=== PATIENT | male | born 1945 | race Caucasian/White ===

== ENCOUNTER → 2017-10-19 13:41 | Outpatient (CLI) | payer MEDICARE, OTHER, SELFPAY ==
[2017-10-19 14:05] LABS: Add Manual Diff / Slide Review NO; Basophils Percent Auto 0.7 % (0-2); Eosinophils Percent Auto 2.1 % (2-4); Hematocrit 34.7 % (41-53); Hemoglobin 12.1 g/dL (13.5-17.5); Lymphocytes Percent Auto 20.4 % (25-40); Mean Corpuscular HGB Conc 34.9 % (30-36); Mean Corpuscular Hemoglobin 36.6 PG (26-34); Monocytes Percent Auto 16.1 % (3-14); Neutrophils Absolute Auto 2800 /uL (3000-5900); Neutrophils Percent Auto 60.7 % (50-75); Platelet Count 170 X10^3/uL (150-400); Red Blood Cell Count 3.31 X10^6/uL (4.5-5.9); Red Cell Distribution Width 13.4 % (11.6-14.8); White Blood Cell Count 4.6 X10^3/uL (4.5-11.0)
[2017-10-19 14:21] LABS: Alanine Aminotransferase 42 IU/L (21-72); Albumin 4.3 g/dL (3.5-5.0); Albumin Globulin Ratio 1.4 (1.0-2.8); Alkaline Phosphatase 56 U/L (38-126); Aspartate Aminotransferase 42 IU/L (17-59); Bilirubin Total 0.8 mg/dL (0.2-1.3); Blood Urea Nitrogen 18 mg/dL (9-20); Calcium 9.6 mg/dL (8.4-10.2); Carbon Dioxide 28 mmol/L (22-32); Chloride 100 mmol/L (98-107); Estimated Glomerular Filt Rate > 60.0 mL/min (>60); Globulin 3.1 g/dL (1.7-4.1); Glucose 85 mg/dL (80-110); HEMOLYSIS < 15 (0-50); Lactate Dehydrogenase 499 U/L (313-618); Potassium 4.4 mmol/L (3.4-5.1); Sodium 140 mmol/L (137-145); Total Protein 7.4 g/dL (6.3-8.2)
--- NOTE | 2017-10-19 16:34 | PC.NURSE ---
labs stables, provider visit 10/29
== END ==
PROVIDERS: Family Provider Family Medicine; PCP Family Medicine; Visit Provider Nurse Practitioner Gerontology
DX: D53.9 Nutritional anemia, unspecified (principal)
CPT/HCPCS: 36415; 80053; 83615; 85025

== ENCOUNTER → 2017-10-22 11:19 | Outpatient (CLI) | payer MEDICARE, OTHER, SELFPAY | PROVIDERS: Family Provider Family Medicine; PCP Family Medicine; Visit Provider Family Medicine | DX: R20.2 Paresthesia of skin (principal); G60.9 Hereditary and idiopathic neuropathy, unspecified | CPT/HCPCS: 95886; 95887; 95911 ==

== ENCOUNTER → 2017-11-03 12:59 | Outpatient (CLI) | payer MEDICARE, OTHER, SELFPAY ==
[2017-11-03 15:56] LABS: Vitamin B12 785 pg/mL (239-931)
[2017-11-05 14:01] LABS: Homocysteine 14.2 umol/L (< 11.4)
[2017-11-06 21:13] LABS: Methylmalonic Acid 207 nmol/L (87-318)
== END ==
PROVIDERS: Family Provider Family Medicine; PCP Family Medicine; Visit Provider Internal Medicine Hematology & Oncology
DX: D53.8 Other specified nutritional anemias (principal); E53.8 Deficiency of other specified B group vitamins
CPT/HCPCS: 36415; 82607; 83090; 83921

== ENCOUNTER 2017-11-16 11:30 | Oncology outpatient (ONC) | payer MEDICARE, OTHER, SELFPAY ==
--- NOTE | 2017-10-29 16:39 | P.PNONC_ITS ---
PN -Subjective Interval history: ID AND REASON FOR THE VISIT 72-year-old gentleman with macrocytic anemia of unknown etiology HISTORY OF PRESENT ILLNESS Devon Ferguson is 72 year old male with ?lifelong? history of anemia. Laboratory testing on November 18, 2012 showed hemoglobin level 12.4 hematocrit 37.3 MCV 105. Approximately 1 year the later on November 17, 2013 the white cell count 3.8, hemoglobin level 12.4, hematocrit 35.2 and MCV 103 and platelets 188. At the time patient admitted to regular alcohol use. He then reduced his alcohol intake by roughly 50-75% to to or fewer glasses of red wine each evening. Despite this patient continued to show macrocytic anemia. Labs from March 28 2014 showed WBC 4.5 hemoglobin 12.8, MCV 101. Serum vitamin B12 level ranges from [phone] from 02/26/2016 to 11/10/2016. His serum folic acid level was > 20 on 11/10/2016. Workup for possible multiple myeloma in 2015 showed no evidence of abnormal proteins. On December 28 2015, he underwent bone marrow aspiration biopsy. The pathology showed markedly hypocellular marrow for age (about 5% cellular) with reduced trilineage elements and evidence of erythroid regeneration, but no obvious dysplasia among the most visible cells, no obvious marrow infiltration by lymphoma, a plasma cell neoplasm, or non-hematopoietic neoplasm. His same day peripheral blood sample showed mild anemia with moderate erythrocyte macrocytosis. Flowcytometry showed of the bone marrow aspirate showed hemodilute sample with no abnormal blast or myeloid cell population identified, and no abnormal B-cell, T-cell, or plasma cell population identified. An MDS FISH panel performed on the marrow aspirate is negative for the genomic abnormalities evaluated. Patient has been taking vitamin B12 orally as well as taking folic acid for years. Recently probably for the past couple of months, patient has noticed problems keeping balance. In addition patient also noted numbness of the toes bilaterally. No other new events. - Patient Self-Reported Symptoms SR Neuro issues: Numbness or tingling (bilateral toes.), Difficulty balancing ( for the last couple of months. ) - Additional ROS All systems PM: reviewed and no additional remarkable complaints except as stated Home Medications and Allergies Home Medications Medication Instructions Recorded Confirmed Type aspirin 81 mg PO DAILY 10/29/17 10/29/17 History cyanocobalamin (vitamin B-12) 1,000 mcg PO DAILY 10/29/17 10/29/17 History [Vitamin B-12] folic acid 0.8 mg PO DAILY 10/29/17 10/29/17 History ibuprofen [Advil] 200 mg PO TID PRN 10/29/17 10/29/17 History lisinopril 20 mg PO DAILY 10/29/17 10/29/17 History lutein-zeaxanthin [Ocuvite Lutein 10/29/17 History 25] multivitamin 1 cap PO QAM 10/29/17 10/29/17 History omega 8-lvj-vgj-fish oil [Fish Oil] 2,400 10/29/17 History Exam Vital signs: Temperature 98.9?, heart rate 84, respiratory rate 16, blood pressure 126/71, pulse ox 99% on room air, weight 221.5 lb. ECOG performance score 1. - Constitutional positive no acute distress, positive average body habitus, positive cooperative (Younger than stated age) - Routine HEENT Exam Head: Present: normocephalic, atraumatic Eye: Present: EOMI, PERRL, normal accommodation. Absent: conjunctival icterus ENT: Present: mucous membranes moist - Routine Neck Exam Present: supple. Absent: lymphadenopathy, thyromegaly, swelling, tracheal deviation - Routine Chest/Breast/Axilla Exam Axillae: Absent: lymphadenopathy - Routine Respiratory Exam Present: Clear to auscultation bilaterally. Absent: wheezes - Routine Cardiovascular Exam Present: RRR, S1, S2. Absent: murmur, gallop, rubs - Routine Abdominal Exam Present: soft, normoactive bowel sounds. Absent: tenderness, distended, organomegaly - Routine Extremities Exam Absent: cyanosis, clubbing, edema - Routine Back/Spine Exam Back/Spine: Present: full ROM. Absent: CVA tenderness, paraspinal tenderness - Routine Neurological Exam Present: alert, oriented X3, CN II-XII intact, sensory deficit (Numbness of the toes bilaterally), normal reflexes, abnormal gait (Unsteady when walking), moving all extremities, normal tone, normal speech. Absent: motor deficit, tremors, asterixis - Routine Psychiatric Exam Present: normal affect, normal thought process, cooperative, good insight, good judgment Results - Labs The labs from October 19, 2017 WBC 4.6, RBC 3.31, hemoglobin 12.1, hematocrit 34.7, MCV 105.0, MCH 36.6, neutrophil 2800 Sodium 140, potassium 4.4, chloride 100, carbon dioxide 28, BUN 18, creatinine 0.9, glucose 85, calcium 9.6, total bilirubin 0.8, AST 42, ALT 42, alk phos 56, lactate dehydrogenase 499, total protein 7.4, albumin 4.3, globulin 3.1, - Imaging Additional studies: Procedures Closed [endoscopic] biopsy of large intestine (03/01/13) Assessment and Plan (1) Macrocytic anemia Current visit: Yes Status: Chronic 10/29/17 16:49 A longstanding history of macrocytic anemia. Previous workup showed no evidence of vitamin B12 or folic acid deficiency. Bone marrow aspiration biopsy was unremarkable. However recently patient developed balancing problems as well as numbness of the toes. These cluster of events suggest possible vitamin B12 deficiency. Clinically patient has been on vitamin B12 orally. I am suspicious that patient has vitamin B12 deficiency but with normal serum vitamin B12 level. Oral vitamin B12 supplementation may not be sufficient. I will proceed with repeat testing of vitamin B12 deficiency. I will check an MMA, HC and vitamin B12 level. And I will have the patient come back right after the results are available for review. If it is confirmed, I will convert the oral vitamin B12 to intramuscular vitamin B12 injection. (2) Numbness of toes Current visit: Yes Status: Chronic 10/29/17 16:51 Not sure the exact etiology for the numbness of the toes bilaterally. Patient currently is also being followed by his primary care provider for further workup of possible neurological etiologies. If the above-mentioned vitamin B12 deficiency testing was confirmed, patient may have neuropathy due to Vitamin B12 deficiency. MRI studies of the spinal cord may be need to evaluate possible sub acute combined degeneration of the dorsal (posterior) and lateral columns ( white matter) of the spinal cord due to demyelination. (3) Balance problem Current visit: Yes Status: Chronic 10/29/17 16:52 Once again the etiology is uncertain for the balancing issues. It may be related to the neuropathy patient has demonstrated including the numbness of the toes. These may be related to possible vitamin B12 deficiency. Again I will wait for the test results and we talked with the patient about possible further treatment options. - Time Spent with Patient We will have the patient come back in about 1-2 weeks to review the results.
[2017-11-16 11:30] LABS: Add Manual Diff / Slide Review NO; Basophils Percent Auto 0.8 % (0-2); Eosinophils Percent Auto 2.4 % (2-4); Hematocrit 35.7 % (41-53); Hemoglobin 12.4 g/dL (13.5-17.5); Lymphocytes Percent Auto 24.8 % (25-40); Mean Corpuscular HGB Conc 34.6 % (30-36); Mean Corpuscular Hemoglobin 36.9 PG (26-34); Mean Corpuscular Volume 106.6 fL (80-100); Monocytes Percent Auto 17.9 % (3-14); Neutrophils Absolute Auto 2100 /uL (3000-5900); Neutrophils Percent Auto 54.1 % (50-75); Platelet Count 176 X10^3/uL (150-400); Red Blood Cell Count 3.35 X10^6/uL (4.5-5.9); Red Cell Distribution Width 13.3 % (11.6-14.8); White Blood Cell Count 3.9 X10^3/uL (4.5-11.0)
[2017-11-16 11:36] LABS: Alanine Aminotransferase 38 IU/L (21-72); Albumin 4.4 g/dL (3.5-5.0); Albumin Globulin Ratio 1.4 (1.0-2.8); Alkaline Phosphatase 68 U/L (38-126); Aspartate Aminotransferase 39 IU/L (17-59); BUN Creatinine Ratio 16.7 (6-22); Bilirubin Total 0.8 mg/dL (0.2-1.3); Blood Urea Nitrogen 15 mg/dL (9-20); Calcium 9.7 mg/dL (8.4-10.2); Carbon Dioxide 28 mmol/L (22-32); Chloride 99 mmol/L (98-107); Estimated Glomerular Filt Rate > 60.0 mL/min (>60); Globulin 3.2 g/dL (1.7-4.1); Glucose 95 mg/dL (80-110); HEMOLYSIS < 15 (0-50); Potassium 4.7 mmol/L (3.4-5.1); Sodium 136 mmol/L (137-145); Total Protein 7.6 g/dL (6.3-8.2)
[2017-11-16 11:48] VITALS: BP 120/58; PULSE 70; RESP 16; TEMP 36.7; O2SAT 98
--- NOTE | 2017-11-16 12:45 | ONC.PN ---
PN -Subjective Interval history: ID AND REASON FOR THE VISIT 72-year-old gentleman with macrocytic anemia, likely due to folic acid deficiency. INTERIM EVENTS: No new signs or symptoms. He is still having the same level of problems with balances. No fever and no chills. HISTORY OF PRESENT ILLNESS Devon Ferguson is 72 year old male with ?lifelong? history of anemia. Laboratory testing on November 18, 2012 showed hemoglobin level 12.4 hematocrit 37.3 MCV 105. Approximately 1 year the later on November 17, 2013 the white cell count 3.8, hemoglobin level 12.4, hematocrit 35.2 and MCV 103 and platelets 188. At the time patient admitted to regular alcohol use. He then reduced his alcohol intake by roughly 50-75% to to or fewer glasses of red wine each evening. Despite this patient continued to show macrocytic anemia. Labs from March 28 2014 showed WBC 4.5 hemoglobin 12.8, MCV 101. Serum vitamin B12 level ranges from [phone] from 02/26/2016 to 11/10/2016. His serum folic acid level was > 20 on 11/10/2016. Workup for possible multiple myeloma in 2015 showed no evidence of abnormal proteins. On December 28 2015, he underwent bone marrow aspiration biopsy. The pathology showed markedly hypocellular marrow for age (about 5% cellular) with reduced trilineage elements and evidence of erythroid regeneration, but no obvious dysplasia among the most visible cells, no obvious marrow infiltration by lymphoma, a plasma cell neoplasm, or non-hematopoietic neoplasm. His same day peripheral blood sample showed mild anemia with moderate erythrocyte macrocytosis. Flowcytometry showed of the bone marrow aspirate showed hemodilute sample with no abnormal blast or myeloid cell population identified, and no abnormal B-cell, T-cell, or plasma cell population identified. An MDS FISH panel performed on the marrow aspirate is negative for the genomic abnormalities evaluated. Patient has been taking vitamin B12 orally as well as taking folic acid for years. Recently probably for the past couple of months, patient has noticed problems keeping balance. In addition patient also noted numbness of the toes bilaterally. No other new events. - Patient Self-Reported Symptoms SR Neuro issues: Numbness or tingling (bilateral toes.), Difficulty balancing (for the last couple of months. ) - Additional ROS All systems PM: reviewed and no additional remarkable complaints except as stated Home Medications and Allergies Home Medications Medication Instructions Recorded Confirmed Type aspirin 81 mg PO DAILY 10/29/17 10/29/17 History cyanocobalamin (vitamin B-12) 1,000 mcg PO DAILY 10/29/17 10/29/17 History [Vitamin B-12] ibuprofen [Advil] 200 mg PO TID PRN 10/29/17 10/29/17 History lisinopril 20 mg PO DAILY 10/29/17 10/29/17 History lutein-zeaxanthin [Ocuvite Lutein 10/29/17 History 25] multivitamin 1 cap PO QAM 10/29/17 10/29/17 History omega 6-sow-wcl-fish oil [Fish Oil] 2,400 10/29/17 History folic acid 2 mg PO DAILY 90 Days #180 tab 11/16/17 Rx Allergies Allergy/AdvReac Type Severity Reaction Status Date / Time No Known Drug Allergies Allergy Verified 11/16/17 11:50 Exam Vital signs: Last Vital Signs Temp 98.0 F 11/16/17 11:48 Pulse 70 11/16/17 11:48 Resp 16 11/16/17 11:48 BP 120/58 L 11/16/17 11:48 Pulse Ox 98 11/16/17 11:48 - Constitutional positive no acute distress, positive average body habitus, positive cooperative - Routine HEENT Exam Head: Present: normocephalic, atraumatic Eye: Present: EOMI, PERRL, normal accommodation. Absent: conjunctival icterus, scleral injection ENT: Present: mucous membranes moist - Routine Neck Exam Present: supple, normal carotid upstroke. Absent: lymphadenopathy, thyromegaly - Routine Respiratory Exam Present: Clear to auscultation bilaterally. Absent: accessory muscle use, wheezes - Routine Cardiovascular Exam Present: RRR, S1, S2. Absent: murmur, gallop, rubs - Routine Abdominal Exam Present: soft, normoactive bowel sounds. Absent: organomegaly - Routine Extremities Exam Absent: edema - Routine Neurological Exam Present: alert, oriented X3, CN II-XII intact. Absent: sensory deficit, motor deficit - Routine Psychiatric Exam Present: normal affect, normal thought process, cooperative, good insight, good judgment Results - Labs Laboratory Last Values WBC 3.9 X10^3/uL (4.5-11.0) L 11/16/17 11:14 RBC 3.35 X10^6/uL (4.5-5.9) L 11/16/17 11:14 Hgb 12.4 g/dL (13.5-17.5) L 11/16/17 11:14 Hct 35.7 % (41-53) L 11/16/17 11:14 MCV 106.6 fL (80-100) H 11/16/17 11:14 MCH 36.9 PG (26-34) H 11/16/17 11:14 MCHC 34.6 % (30-36) 11/16/17 11:14 RDW 13.3 % (11.6-14.8) 11/16/17 11:14 Plt Count 176 X10^3/uL (150-400) 11/16/17 11:14 Neut % (Auto) 54.1 % (50-75) 11/16/17 11:14 Lymph % (Auto) 24.8 % (25-40) L 11/16/17 11:14 [place] % (Auto) 17.9 % (3-14) H 11/16/17 11:14 Eos % (Auto) 2.4 % (2-4) 11/16/17 11:14 Baso % (Auto) 0.8 % (0-2) 11/16/17 11:14 Neut # (Auto) 2100 /uL (3436-9242) L 11/16/17 11:14 Sodium 136 mmol/L (137-145) L 11/16/17 11:14 Potassium 4.7 mmol/L (3.4-5.1) 11/16/17 11:14 Chloride 99 mmol/L (98-107) 11/16/17 11:14 Carbon Dioxide 28 mmol/L (22-32) 11/16/17 11:14 BUN 15 mg/dL (9-20) 11/16/17 11:14 Creatinine 0.90 mg/dL (0.66-1.25) 11/16/17 11:14 Estimated GFR > 60.0 mL/min (>60) 11/16/17 11:14 BUN/Creatinine Ratio 16.7 (6-22) 11/16/17 11:14 Glucose 95 mg/dL (80-110) 11/16/17 11:14 Calcium 9.7 mg/dL (8.4-10.2) 11/16/17 11:14 Total Bilirubin 0.8 mg/dL (0.2-1.3) 11/16/17 11:14 AST 39 IU/L (17-59) 11/16/17 11:14 ALT 38 IU/L (21-72) 11/16/17 11:14 Alkaline Phosphatase 68 U/L (38-126) 11/16/17 11:14 Total Protein 7.6 g/dL (6.3-8.2) 11/16/17 11:14 Albumin 4.4 g/dL (3.5-5.0) 11/16/17 11:14 Globulin 3.2 g/dL (1.7-4.1) 11/16/17 11:14 Albumin/Globulin Ratio 1.4 (1.0-2.8) 11/16/17 11:14 Homocysteine 14.2 (ref < 11.4) Methylmalonic acid 207 (ref 87-318) Vitamin B12: 785 (ref [id number]) - Imaging Additional studies: Procedures Closed [endoscopic] biopsy of large intestine (03/01/13) Assessment and Plan (1) Macrocytic anemia Current visit: Yes Status: Chronic I reviewed the lab results with him. His MMA normal indicates that he is not Vitamin B12 deficiency. His Homocysteine is elevate suggests folic acid deficiency. This is consistent with the macrocytic anemia and mild leukopenia. He has been on folic acid 0.8 mg daily. I will increase to 2 mg daily. I will have him come back in 3 months, repeat CBC, CMP, vitamin B12, folic acid level and homocystene leve. (2) Numbness of toes Current visit: Yes Status: Chronic Not sure the exact etiology for the numbness of the toes bilaterally. It is mild and will see if it improves after folic acid supplementation. It has been reported that folic acid deficiency can cause neuropathy that was characterized by a slowly progressive and sensory-dominant pattern with predominant involvement of the lower extremities (3) Balance problem Current visit: Yes Status: Chronic Once again the etiology is uncertain for the balancing issues. No vitamin B12 deficiency. Will monitor for the time being. The patient has folic acid deficiency. It has been reported that folic acid deficiency can cause neuropathy that was characterized by a slowly progressive and sensory-dominant pattern with predominant involvement of the lower extremities.
== END 2017-12-02 16:27 | disposition home or self-care (01) ==
PROVIDERS: Family Provider Family Medicine; PCP Family Medicine; Visit Provider Internal Medicine Hematology & Oncology
DX: D53.9 Nutritional anemia, unspecified (principal); R20.0 Anesthesia of skin; R26.89 Other abnormalities of gait and mobility
CPT/HCPCS: 36415; 80053; 85025; 99214; 99215

== ENCOUNTER → 2018-02-12 12:40 | Outpatient (CLI) | payer MEDICARE, OTHER, SELFPAY ==
[2018-02-12 13:20] LABS: Add Manual Diff / Slide Review NO; Basophils Percent Auto 0.8 % (0-2); Eosinophils Percent Auto 2.2 % (2-4); Hematocrit 35.9 % (41-53); Hemoglobin 12.2 g/dL (13.5-17.5); Lymphocytes Percent Auto 20.6 % (25-40); Mean Corpuscular HGB Conc 34.1 % (30-36); Mean Corpuscular Hemoglobin 36.6 PG (26-34); Mean Corpuscular Volume 107.1 fL (80-100); Monocytes Percent Auto 12.7 % (3-14); Neutrophils Absolute Auto 3100 /uL (1500-7000); Neutrophils Percent Auto 63.7 % (50-75); Platelet Count 190 X10^3/uL (150-400); Red Blood Cell Count 3.35 X10^6/uL (4.5-5.9); Red Cell Distribution Width 13.4 % (11.6-14.8); White Blood Cell Count 4.9 X10^3/uL (4.5-11.0)
[2018-02-12 13:33] LABS: Alanine Aminotransferase 36 IU/L (21-72); Albumin 4.4 g/dL (3.5-5.0); Albumin Globulin Ratio 1.4 (1.0-2.8); Alkaline Phosphatase 54 U/L (38-126); Aspartate Aminotransferase 44 IU/L (17-59); BUN Creatinine Ratio 18.9 (6-22); Bilirubin Total 0.6 mg/dL (0.2-1.3); Blood Urea Nitrogen 17 mg/dL (9-20); Calcium 9.5 mg/dL (8.4-10.2); Carbon Dioxide 25 mmol/L (22-32); Chloride 102 mmol/L (98-107); Estimated Glomerular Filt Rate > 60.0 mL/min (>60); Globulin 3.1 g/dL (1.7-4.1); Glucose 96 mg/dL (80-110); HEMOLYSIS < 15 (0-50); Potassium 4.3 mmol/L (3.4-5.1); Sodium 138 mmol/L (137-145); Total Protein 7.5 g/dL (6.3-8.2)
[2018-02-12 14:38] LABS: Folate > 20.0 ng/mL (2.76-20.0); Vitamin B12 730 pg/mL (239-931)
[2018-02-14 17:17] LABS: Homocysteine 11.1 umol/L (< 11.4)
== END ==
PROVIDERS: Family Provider Family Medicine; PCP Family Medicine; Visit Provider Internal Medicine Hematology & Oncology
DX: D53.9 Nutritional anemia, unspecified (principal); E53.8 Deficiency of other specified B group vitamins; R20.0 Anesthesia of skin
CPT/HCPCS: 36415; 80053; 82607; 82746; 83090; 85025

== ENCOUNTER → 2018-04-30 11:28 | Outpatient (CLI) | payer MEDICARE, OTHER, SELFPAY ==
--- NOTE | 2018-04-30 | DI.RAD.S_ITS ---
PROCEDURE: XR SHOULDER RT MIN 2V INDICATIONS: Right Shoulder pain TECHNIQUE: 3 views of the shoulder were acquired. COMPARISON: None. FINDINGS: Bones: No fractures or dislocations. No suspicious bony lesions. Visualized ribs appear intact. Soft tissues: No suspicious soft tissue calcifications. IMPRESSION: Moderate degenerative osteoarthritic change is seen at the acromioclavicular joint, and also at the glenohumeral joint. No fracture or intra-articular loose body is found. Dictated by: Julián Bingham M.D. on 04/30/2018 at 12:52 Approved by: Julián Bingham M.D. on 04/30/2018 at 12:53
== END ==
PROVIDERS: Family Provider Family Medicine; PCP Family Medicine; Visit Provider Family Medicine
DX: M25.511 Pain in right shoulder (principal); M19.011 Primary osteoarthritis, right shoulder
CPT/HCPCS: 73030

== ENCOUNTER → 2018-05-12 11:27 | Outpatient (CLI) | payer MEDICARE, OTHER, SELFPAY | PROVIDERS: Family Provider Family Medicine; PCP Family Medicine; Visit Provider Nurse Practitioner Gerontology | DX: D53.9 Nutritional anemia, unspecified (principal) | CPT/HCPCS: 36415; 80053; 83090; 85025 ==

== ENCOUNTER 2018-06-21 06:15 | Day surgery (SDC) | payer MEDICARE, OTHER, SELFPAY ==
[2018-06-21] MEDS: SODIUM CHLORIDE 0.9% 1,000 ML 200 ML IV (07:07)
[2018-06-21 07:16] VITALS: BP 125/78; PULSE 79; RESP 16; TEMP 36.6; O2SAT 97
[2018-06-21] MEDS: fentaNYL 250 MCG/5 ML INJ IV (08:00)
[2018-06-21] MEDS: MIDAZOLAM 5 MG/5 ML VIAL IV (08:00)
[2018-06-21 08:02] VITALS: BP 113/69; PULSE 71; RESP 20; TEMP 36.8; O2SAT 99
--- NOTE | 2018-06-21 08:04 | PM.HP.1 ---
History of Present Illness Date Patient Seen: 06/21/18 Time Patient Seen: 07:31 Chief complaint: [id number] SCREENING COLONOSCOPY Narrative: 72yo M for surveillance colonoscopy, last screening scope 5 years ago and single polyp found. No symptoms, no family history. Patient History Medical History Arthritis (Acute) Cataract (lens) fragments in eye following cataract surgery, bilateral (Acute) HTN (hypertension) (Acute) Neuropathy (Acute) Shoulder pain (Acute) Surgical History H/O foot surgery (Acute) History of tonsillectomy (Acute) Social History household members: spouse Family & Social History Social History: household members spouse Meds Home Medications Medication Instructions Recorded Confirmed Type aspirin 81 mg PO DAILY 10/29/17 06/21/18 History cyanocobalamin (vitamin B-12) 1,000 mcg PO DAILY 10/29/17 06/21/18 History [Vitamin B-12] lisinopril 20 mg PO DAILY 10/29/17 06/21/18 History lutein-zeaxanthin [Ocuvite Lutein 1 cap PO DAILY 10/29/17 06/21/18 History 25] multivitamin 1 cap PO QAM 10/29/17 06/21/18 History omega 9-mgh-gic-fish oil [Fish Oil] 2,400 mg PO DAILY 10/29/17 06/21/18 History meloxicam 1 - 2 tab PO 4-6XD 06/21/18 06/21/18 History Allergies Allergy/AdvReac Type Severity Reaction Status Date / Time No Known Drug Allergies Allergy Verified 06/21/18 07:15 Review of Systems Constitutional Constitutional: Reports as per HPI Exam Vital Signs (past 8 hours): - 06/21/18 07:16 06/21/18 08:02 Temperature 97.8 F 98.2 F Pulse Rate 79 71 Respiratory Rate 16 20 Blood Pressure 125/78 113/69 Pulse Oximetry 97 99 Oxygen Delivery Method Room Air Narrative Exam Narrative: AAO, NAD, male of healthy weight EOMI, MMM unlabored RA soft, nt/nd MAEW Assessment & Plan (1) History of colon polyps: Current visit: Yes Status: Acute Assessment & Plan narrative: - surveillance colonoscopy --> all R/B/A discussed and pt wishes to proceed
[2018-06-21 08:07] VITALS: BP 109/71; PULSE 69; RESP 19; O2SAT 99
--- NOTE | 2018-06-21 08:13 | PM.OP.ENDO ---
Operative Date/Time/Diagnoses Date of procedure: 06/21/18 Time of procedure: 08:13 Pre-op diagnosis: History of colon polyps Post-op diagnosis: same Procedure & Clinicians Study performed: Flexible sigmoidoscopy Same procedure as scheduled: No Indications: history of colon polyps Surgeon: Candelaria Sanches Procedure Notes SCOAP/Timeout: 742 Procedure in detail: After obtaining informed consent, the patient was brought to the GI suite and placed in the left lateral decubitus position on the examination table. After placement of appropriate monitors, the patient was given incremental doses of Versed and Fentanyl until an appropriate level of sedation was achieved. A time out was held per SCOAP protocol. A digital rectal examination was performed and did not reveal any masses or obstructing lesions; no external hemorrhoids noted. The colonoscope was gently passed into the patient's anus and moderate volume stool on the turpin was immediately encountered. Prep was inadequate. Part of the sigmoid colon was traversed but the stool burden only worsened so the procedure was aborted for safety and inability to adequately complete goals of procedure. Moderate diverticulosis was noted in the sigmoid. The scope was straightened and air aspirated from the colon. The instrument was removed from the patient's body and the procedure was concluded. The patient was allowed to awaken from sedation without difficulty and taken to the post-anesthesia care unit in good condition. Scope withdrawal time: n/a Sedation minutes: 9 Findings: diverticulosis Specimen(s): none sent Complications: other (poor prep, procedure aborted) Impression: Pt still had stool coating much of the turpin with some larger matter partially blocking the lumen, thus procedure was aborted for safety and inability to complete adequately. Plan for aftercare: discussed options and pt opts for staying and completing one or more enemas and attempting procedure again later today. Disposition: PACU
[2018-06-21] MEDS: FLEETS ENEMA 2 EACH PR ×2 (08:15→09:57)
--- NOTE | 2018-06-21 08:17 | P.OP.ENDO_ITS ---
Operative Date/Time/Diagnoses Date of procedure: 06/21/18 Time of procedure: 08:13 Pre-op diagnosis: History of colon polyps Post-op diagnosis: same Procedure & Clinicians Study performed: Flexible sigmoidoscopy Same procedure as scheduled: No Indications: history of colon polyps Surgeon: Candelaria Sanches Procedure Notes SCOAP/Timeout: 742 Procedure in detail: After obtaining informed consent, the patient was brought t o the GI suite and placed in the left lateral decubitus position on the examination table. After placement of appropriate monitors, the patient was given incremental doses of Versed and Fentanyl until an appropriate level of sedation was achieved. A time out was held per SCOAP protocol. A digital rectal examination was performed and did not reveal any masses or obstructing lesions; no external hemorrhoids noted. The colonoscope was gently passed into the patient's anus and moderate volume stool on the turpin was immediately encountered. Prep was inadequate. Part of the sigmoid colon was tr aversed but the stool burden only worsened so the procedure was aborted for safety and inability to adequately complete goals of procedure. Moderate diverticulosis was noted in the sigmoid. The scope was straightened and air aspirated from the colon. The instrument was removed from the patient's body and the procedure was concluded. The patient was allowed to awaken from sedation without difficulty and taken to the post-anesthesia care unit in good condition. Scope withdrawal time: n/a Sedation minutes: 9 Findings: diverticulosis Specimen(s): none sent Complications: other (poor prep, procedure aborted) Impression: Pt still had stool coating much of the turpin with some larger matter partially blocking the lumen, thus procedure was aborted for safety and inability to complete adequately. Plan for aftercare: discussed options and pt opts for staying and completing one or more enemas and attempting procedure again later today. Disposition: PACU
--- NOTE | 2018-06-21 08:26 | SUR.PHASEI ---
pt had incomplete prep. aborted first attempt at colonoscopy and sent thru to [facility]. pt charted in phase 2 at 0806 but will go back thru to intraop after 2 enemas
--- NOTE | 2018-06-21 09:58 | SUR.PHASEII ---
Patient up to bathroom x1, liquid with unformed, brown stool. 2nd enema given. Patient lying flat on back to facilitate enema flow internally. at bedside. Patient alert, oriented.
[2018-06-21 10:41] VITALS: BP 126/81; PULSE 76; RESP 16; TEMP 36.4; O2SAT 98
== END 2018-06-21 10:49 ==
PROVIDERS: Family Provider Family Medicine; PCP Family Medicine; Visit Provider Surgery
PROC: 0DJD8ZZ Inspection of Lower Intestinal Tract, Via Natural or Artificial Opening Endoscopic (ICD-10-PCS; CPT 45378; principal; 2018-06-21 07:45)
DX: Z86.010 Personal history of colon polyps (principal); I10 Essential (primary) hypertension; K57.30 Diverticulosis of large intestine without perforation or abscess without bleeding; Z53.09 Procedure and treatment not carried out because of other contraindication
CPT/HCPCS: G0104; 99152; J2250; J3010

== ENCOUNTER 2018-08-09 08:59 | Day surgery (SDC) | payer MEDICARE, OTHER, SELFPAY ==
[2018-08-09 09:17] VITALS: BMI 26.6
[2018-08-09 09:28] VITALS: BP 134/85; PULSE 80; RESP 28; TEMP 36.5; O2SAT 100
[2018-08-09] MEDS: SODIUM CHLORIDE 0.9% 1,000 ML 200 ML IV (09:30)
--- NOTE | 2018-08-09 09:37 | PM.HP.1 ---
History of Present Illness Date Patient Seen: 08/09/18 Time Patient Seen: 09:37 Chief complaint: [id number] SCREENING COLONOSCOPY Narrative: Pleasant and active 72yo M recently seen for a surveillance colonoscopy but prep was quite poor and we were unable to complete despite giving him an enema during his stay. He says he jokingly had a 'last supper' the night before the prep with a big load of heavy foods and thinks this may have contributed. Here again for another attempt. Patient History Medical History Arthritis (Acute) Cataract (lens) fragments in eye following cataract surgery, bilateral (Acute) HTN (hypertension) (Acute) Neuropathy (Acute) Shoulder pain (Acute) Surgical History H/O foot surgery (Acute) History of tonsillectomy (Acute) Family History Brother Hypertension Heart disease, congenital Mother Stroke Father Lung cancer Social History marital status: household members: spouse occupational status: previously employed Smoking Status: Never smoker alcohol intake: current substance use type: does not use Family & Social History Family History Brother Hypertension Heart disease, congenital Mother Stroke Father Lung cancer Social History: household members spouse Tobacco & Substance use: Smoking Status Never smoker alcohol intake current Meds Home Medications Medication Instructions Recorded Confirmed Type aspirin 81 mg PO DAILY 10/29/17 08/09/18 History cyanocobalamin (vitamin B-12) 1,000 mcg PO DAILY 10/29/17 08/09/18 History [Vitamin B-12] lisinopril 20 mg PO DAILY 10/29/17 08/09/18 History lutein-zeaxanthin [Ocuvite Lutein 1 cap PO DAILY 10/29/17 08/09/18 History 25] multivitamin 1 cap PO QAM 10/29/17 08/09/18 History omega 9-zby-sdo-fish oil [Fish Oil] 1,000 mg PO DAILY 10/29/17 08/09/18 History meloxicam 1 - 2 tab PO 4-6XD 06/21/18 08/09/18 History Allergies Allergy/AdvReac Type Severity Reaction Status Date / Time No Known Drug Allergies Allergy Verified 08/09/18 09:15 Review of Systems Constitutional Constitutional: Reports as per HPI Exam Vital Signs (past 8 hours): - 08/09/18 09:28 Temperature 97.7 F Pulse Rate 80 Respiratory Rate 28 H Blood Pressure 134/85 Pulse Oximetry 100 Oxygen Delivery Method Room Air Narrative Exam Narrative: AAO, NAD, male of healthy weight EOMI, MMM, no scleral icterus unlabored RA soft, nt/nd MAEW visible skin dry and intact Assessment & Plan Assessment & Plan narrative: surveillance colonoscopy --> all R/B/A discussed and pt wishes to proceed
[2018-08-09] MEDS: fentaNYL 250 MCG/5 ML INJ IV (10:11)
[2018-08-09] MEDS: MIDAZOLAM 5 MG/5 ML VIAL IV (10:12)
--- NOTE | 2018-08-09 10:31 | PM.OP.ENDO ---
Operative Date/Time/Diagnoses Date of procedure: 08/09/18 Time of procedure: 10:31 Pre-op diagnosis: History of polyps Post-op diagnosis: same Procedure & Clinicians Study performed: Surveillance Colonoscopy Same procedure as scheduled: Yes Indications: 73yo M with history of polyps for surveillance colonoscopy. Attempted a few weeks ago but prep was inadequate. Surgeon: Candelaria Sanches Procedure Notes SCOAP/Timeout: 947 Procedure in detail: After obtaining informed consent, the patient was brought to the GI suite and placed in the left lateral decubitus position on the examination table. After placement of appropriate monitors, the patient was given incremental doses of Versed and Fentanyl until an appropriate level of sedation was achieved. A time out was held per SCOAP protocol. A digital rectal examination was performed and did not reveal any masses or obstructing lesions but a somewhat lax anal sphincter is noted. The colonoscope was gently passed into the patient's anus and the entire colon navigated to the level of the cecum with minimal difficulty other than reaching the end due to a quite long colon; this was aided by placing patient on his back. Prep was adequate although despite two days with only clears, he still had bits of residual stool and frequent spouts of brownish water from a lax ileocecal valve. Once in the cecum, the scope was slowly withdrawn being sure to go before and beyond all mucosal folds and prominences as able to get a thorough examination. Given the length and excess folds, this was tedious. It was most challenging in the sigmoid which had frequent tight folds and air escaped regularly through his lax sphincter, making maintaining distension difficult. No masses or polyps are noted. Other findings include extensive diverticulosis. At the level of the rectal vault, the scope was retroflexed and the internal anal canal was examined. The scope was straightened and air aspirated from the colon. The instrument was removed from the patient's body and the procedure was concluded. The patient was allowed to awaken from sedation without difficulty and taken to the post-anesthesia care unit in good condition. Scope withdrawal time: 19 min Sedation minutes: 40 Findings: diverticulosis (extensive, primarily through sigmoid but scattered throughout colon ) Specimen(s): none sent Complications: none Impression: 1. extensive diverticulosis 2. laxity of anal sphincter Recommendations: Colonscopy in 10 years (versus opt out due to age pending health at time) and High fiber diet Follow up: as needed Disposition: PACU
[2018-08-09 10:34] VITALS: BP 131/81; PULSE 70; RESP 17; O2SAT 98
[2018-08-09 10:44] VITALS: BP 128/75; PULSE 87; PULSE 88; RESP 16; TEMP 36.7; O2SAT 97; O2SAT 98
[2018-08-09 10:58] VITALS: BP 110/69; PULSE 86; RESP 16; TEMP 36.9; O2SAT 99
--- NOTE | 2018-08-09 11:02 | SUR.PHASEI ---
Stable PACU stay. EKG obtained per Dr Harrell's instructions, Dr to bedside to speak with pt. Pt taken to [facility].
== END 2018-08-09 11:05 | disposition home or self-care (01) ==
PROVIDERS: PCP Family Medicine; Visit Provider Surgery
PROC: 0DJD8ZZ Inspection of Lower Intestinal Tract, Via Natural or Artificial Opening Endoscopic (ICD-10-PCS; CPT 45378; principal; 2018-08-09 10:45)
DX: Z86.010 Personal history of colon polyps (principal); K57.30 Diverticulosis of large intestine without perforation or abscess without bleeding; I10 Essential (primary) hypertension
CPT/HCPCS: G0105; 93005; 99152; 99153; J2250; J3010

== ENCOUNTER → 2018-09-21 08:44 | Outpatient (CLI) | payer MEDICARE, OTHER, SELFPAY ==
--- NOTE | 2018-09-21 08:48 | DI.CT.S_ITS ---
PROCEDURE: CT CHEST ABD PEL W CON INDICATIONS: WEIGHT LOSS, MACROCYTIC ANEMIA TECHNIQUE: After the administration of oral and intravenous contrast, 5 mm thick sections acquired from the lung apices to the symphysis. 5 mm coronal and sagittal reformats were performed, with additional 7 mm coronal MIP reformats through the lungs. For radiation dose reduction, the following was used: automated exposure control, adjustment of mA and/or kV according to patient size. COMPARISON: None. FINDINGS: Image quality: Coronary and aortic atherosclerosis is present. CHEST: Lungs and pleura: Elevation of the left diaphragm is present. The lungs are well aerated. No focal consolidation, effusion, or pneumothorax is evident. Subpleural interstitial changes are identified throughout the lungs bilaterally, which is more predominantly seen posteriorly. No significant bronchial wall thickening is evident. No lung mass is appreciated. Evaluation for pulmonary nodules is suboptimal related to interstitial prominence within the posterior lung bases. No definitive or large pulmonary nodules are evident. Mediastinum: Heart size is normal. No pericardial effusion. No mediastinal or hilar adenopathy by size criteria. Thoracic aorta and central pulmonary arteries are normal in size. Esophagus is normal in caliber. No hiatal hernia. Coronary and aortic atherosclerosis is present. Chest wall and bones: No axillary or supraclavicular adenopathy by size criteria. Thyroid gland is not adequately evaluated on CT. Severe multilevel degenerative changes of the thoracic spine are more prominent at the thoracolumbar junction. No suspicious osseous lesions are acute compression fractures are evident. Severe degenerative changes of the right shoulder and moderate degenerative changes of the left shoulder are present. There are also prominent degenerative changes of the sternoclavicular joints. ABDOMEN: Solid organs: Liver is normal in size and enhancement. Gallbladder is not enlarged or inflamed. Biliary system is non dilated. Pancreas enhances normally. Spleen is normal in size and enhancement. No adrenal nodules. Kidneys demonstrate normal size and enhancement, without hydronephrosis. Peritoneum and bowel: The stomach is unremarkable. The small bowel loops are nondilated. The appendix is well-visualized and normal in size. Extensive colonic diverticulosis is identified, most pronounced involving the sigmoid colon. No definite surrounding inflammation is appreciated to suggest acute diverticulitis. No free fluid, loculated fluid collection or free air is appreciated. Nodes and vessels: No retroperitoneal or mesenteric adenopathy by size criteria. Aorta and inferior vena cava are normal in size. Bones: No acute fracture or suspicious osseous lesion is appreciated involving the abdomen. There is prominent dextroconvex curvature of the lumbar spine. Severe multilevel degenerative changes of the lumbar spine are present. No suspicious osseous lesions are evident. PELVIS: Soft tissues: Bladder wall thickness is normal. No inguinal hernias or adenopathy. No loculated fluid collections are evident. There is moderate atrophy involving the distal right gluteus medius and gluteus minimus muscles now which may be related to previous trauma or chronic inflammation. Bones: No suspicious bony lesions. No acute pelvic fractures are evident. Moderate degenerative changes of the bilateral hips and sacroiliac joints are present. IMPRESSION: 1. No evidence of metastatic disease. No lymphadenopathy. 2. Chronic interstitial changes within the posterior bilateral lungs may represent early pulmonary fibrosis. Please consider followup chest CT imaging in 6-12 months. 3. Colonic diverticulosis without convincing evidence of acute diverticulitis. No bowel obstruction. 4. Coronary and aortic atherosclerosis. 5. 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 Dictated by: Jesus Sawyer M.D. on 09/21/2018 at 11:44 Approved by: Jesus Sawyer M.D. on 09/21/2018 at 12:10
--- NOTE | 2018-09-21 08:48 | DI.NM.S_ITS ---
PROCEDURE: NE BONE SCAN WHOLE BODY RADIOPHARMACEUTICAL: 21.8 mCi Tc-99m MDP IV. INDICATIONS: weight loos TECHNIQUE: Delayed whole-body scintigrams were obtained approximately 3-4 hours after intravenous injection of radiotracer. Anterior and posterior views were acquired from vertex to feet. COMPARISON: [facility], MR, PELVIS W&WO CONTRAST, 05/29/2016, 10:09. [facility], MR, HIP WITHOUT CONTRAST, 10/22/2015, 16:22. [facility], MR, PELVIS W&WO CONTRAST, 11/08/2015, 9:36. [facility], NM, BONE SCAN WHOLE BODY, 10/26/2015, 11:11. [facility], CT, CT CHEST ABD PEL W CON, 09/21/2018, 10:49. [facility], CR, XR SHOULDER RT MIN 2V, 04/30/2018, 11:37. FINDINGS: Intense uptake in the right acetabulum seen on the last bone scan has resolved. There is persistently increased uptake at the left sternoclavicular junction. There is intensity increased uptake in the right shoulder, which is given. The comparison CT on 09/21/2018 demonstrates severe degenerative changes in the left sternoclavicular joint and right shoulder. There severe dextroscoliosis.. There are foci of increased uptake in cervical, thoracic and lumbar spine with distribution indistinguishable from degenerative disc and facet disease; early metastasis to spine could be obscured by degenerative changes. No lesions are identified in skull, sternum, clavicles, scapulae, ribs, bony pelvis, and visualized shafts of the long bones. There are foci of increased periarticular activity involving shoulders, left elbow, wrists, hands, hips, knees, ankles and feet, compatible with degenerative/arthritic changes. IMPRESSION: 1. No definitive metastatic disease. 2. Degenerative changes are present as described. Dictated by: Flory Romano M.D. on 09/21/2018 at 14:28 Approved by: Flory Romano M.D. on 09/21/2018 at 16:19
== END ==
PROVIDERS: Family Provider Family Medicine; PCP Family Medicine; Visit Provider Internal Medicine Hematology & Oncology
DX: K57.90 Diverticulosis of intestine, part unspecified, without perforation or abscess without bleeding (principal); I25.10 Atherosclerotic heart disease of native coronary artery without angina pectoris; I70.0 Atherosclerosis of aorta; M41.86 Other forms of scoliosis, lumbar region; M47.814 Spondylosis without myelopathy or radiculopathy, thoracic region; M47.815 Spondylosis without myelopathy or radiculopathy, thoracolumbar region; M19.012 Primary osteoarthritis, left shoulder; M19.011 Primary osteoarthritis, right shoulder; D53.9 Nutritional anemia, unspecified; R63.4 Abnormal weight loss
CPT/HCPCS: 71260; 74177; 78306; A9503; Q9967

== ENCOUNTER → 2018-10-05 07:39 | Outpatient (CLI) | payer MEDICARE, OTHER, SELFPAY ==
--- NOTE | 2018-10-05 | DI.ECHO.S_ITS ---
[place] [facility]---------+ [facility] +---------+ : : [address] : : : : [id number] : : : : Phone: [phone]+ Echocardiogram Report + + :Name: DEMETRA MOODY Study Date: 10/05/2018 Height: 73 in : :[facility] Weight: 205 lb : : Gender: Male BSA: 2.2 m2 : :: 1945 Age: 73 yrs BP: 120/70 mmHg: :Reason For Study: Dyspnea : : Performed By: Joceline Ford : :Referring: MELINA ANDINO : + + Interpretation Summary -The left ventricle is normal in size, wall thickness, and systolic function without any focal wall motion abnormalities. -There is mild to moderate aortic stenosis. -The right ventricle grossly appears normal in size with probable normal systolic function. -The right ventricular systolic pressure is estimated to be at least 23 mmHg based on an estimated right atrial pressure of 3 mm Hg. -The ascending aorta is mildly enlarged. -Comparison is made with the echocardiogram of 11-19-12. -The aortic valve stenosis is new; the ascending aorta diameter is unchanged. Procedure: A two-dimensional transthoracic echocardiogram with color flow and Doppler was performed. The study quality was technically adequate. Comparison is made with the echocardiogram of 11-19-12. The patient was in normal sinus rhythm during the exam. Left Ventricle: The left ventricle is normal in size, wall thickness, and systolic function without any focal wall motion abnormalities. The ejection fraction is estimated to be 60-65%. Diastolic parameters suggest a relaxation abnormality of the left ventricle, consistent with probable normal filling pressures. Right Ventricle: The right ventricle grossly appears normal in size with probable normal systolic function. Atria: The left atrial size is normal. Right atrial size is normal. Mitral Valve: The mitral valve is normal in structure and function. There is no mitral regurgitation noted. Aortic Valve: The aortic valve is trileaflet. There is moderate aortic valve sclerosis. There is moderately reduced leaflet mobility. The calculated aortic valve area is 1.8 cm2. The peak aortic velocity is 2.3 m/sec. The peak aortic velocity on the previous exam was 1.8 m/sec. The aortic valve mean gradient is 11 mmHg. Severity ratio is 0.41. There is mild aortic stenosis. There is trace aortic regurgitation. Tricuspid Valve: The tricuspid valve is normal in structure and function. There is a trace or physiologic amount of tricuspid regurgitation. The right ventricular systolic pressure is estimated to be at least 23 mmHg based on an estimated right atrial pressure of 3 mm Hg. Pulmonic Valve: The pulmonic valve is not well seen, but is grossly normal. There is trace pulmonic regurgitation. Great Vessels: The aortic root is mildly dilated. The ascending aorta is mildly enlarged. The aortic arch is mildly enlarged. The IVC is of normal diameter and collapses greater than 50% with a sniff. This suggests a low right atrial pressure of 3 mm Hg. Pericardium/ Pleura There is no pericardial effusion. There has been no significant change since the previous study. MMode/2D Measurements & Calculations LVIDd: 4.3 cm LVOT diam: 2.4 cm LVIDs: 3.1 cm Ao root diam: 3.9 cm FS: 26.9 % Aortic Jxn: 3.7 cm IVSd: 1.1 cm asc Aorta Diam: 4.0 cm LVPWd: 0.74 cm Ao Arch Diam (Prox Trans): 3.6 cm LV echols. diameter/BSA (cm/m^2): 2.0 LV sys. diameter/BSA (cm/m^2): 1.4 LA dimension: 4.0 cm RA long axis: 5.6 cm LA A2 area: 24.4 cm2 RA area: 19.3 cm2 LA A4 area: 24.8 cm2 RA vol: 56.6 ml LA length (vol): 6.9 cm RA : 26.0 ml/m2 LA vol: 74.1 ml IVC diam: 2.0 cm LA vol index: 34.1 ml/m2 RVDd major: 4.7 cm RVD1 (basal): 3.0 cm RVD2 (mid): 2.7 cm BELKIS (plan): 2.1 cm2 Doppler Measurements & Calculations Ao V2 max: 225.5 cm/sec LVOT Max Wili: 88.6 cm/sec Ao V2 mean: 157.0 cm/sec LV V1 max P.1 mmHg Ao max P.3 mmHg LV V1 VTI: 21.8 cm Ao mean P.1 mmHg BELKIS(I,D): 1.8 cm2 Ao V2 VTI: 53.1 cm BELKIS(V,D): 1.8 cm2 sev ratio: 0.41 BELKIS indexed to BSA (cm^2/m^2): 0.84 MV E max wili: 68.5 cm/sec TR max wili: 221.0 cm/sec MV A max wili: 122.6 cm/sec TR max P.5 mmHg MV E/A: 0.56 PA V2 max: 80.3 cm/sec Med Peak E' Wili: 9.4 cm/sec PA V2 mean: 55.0 cm/sec E/E' med: 7.3 PA mean P.3 mmHg Lat Peak E' Wili: 9.3 cm/sec PA Accel Time: 0.13 sec E/E' lat: 7.4 E/e' average: 7.3 MV dec time: 0.42 sec MV P1/2t: 123.2 msec MV P1/2t max wili: 68.9 cm/sec SV(LVOT): 97.5 ml MVA(P1/2t): 1.8 cm2 Electronically signed by: Sandro Bobby M.D. on Reading Physician:10/05/2018 12:13 PM
== END ==
PROVIDERS: PCP Family Medicine; Visit Provider Family Medicine
DX: I35.0 Nonrheumatic aortic (valve) stenosis (principal); I77.89 Other specified disorders of arteries and arterioles; R06.09 Other forms of dyspnea; I45.19 Other right bundle-branch block; I49.3 Ventricular premature depolarization
CPT/HCPCS: 93306

== ENCOUNTER → 2018-10-28 07:48 | Outpatient (CLI) | payer MEDICARE, OTHER, SELFPAY ==
--- NOTE | 2018-10-28 09:18 | PM.TREADMILL ---
Cardiac Stress Test Report Referral & Results Date Patient Seen: 10/28/18 Time Patient Seen: 09:00 Requesting provider: Bryanna Andrew Indication: CAD Rest ECG: LBBB Procedure Note: Today following both written and verbal informed consent the patient was exercised according to a standard Singh protocol patient went for a total of 5 minutes 47 seconds achieving a maximum heart rate of 127 maximum systolic blood pressure of 170 a. This is approximately 7 METs. Exercise was terminated at this point because of fatigue. Patient was also given Cardiolite through a previously started Hep-Lock IV by the ground nuclear weapons assembly officer approximately 1 minute prior to the cessation of exercise. Signs or symptoms of angina. JELENA +10% on sedentary scale. No change in rhythm during the test. Impression: Intermediate probability for ischemia. Will await perfusion imaging. Please note: Actual ECG tracings can be found in the PACS system.
--- NOTE | 2018-10-30 07:49 | DI.NM.S_ITS ---
DATE OF SERVICE: 10/28/2018 PROCEDURE: Exercise perfusion study. INDICATIONS: PVCs, hypertension. RADIOPHARMACEUTICAL: 27.2 mCi technetium-99m Myoview IV was injected at stress and 24.5 mCi technetium-99m Myoview IV was injected at rest. CARDIAC STRESS: The patient underwent an exercise perfusion study under the supervision of an attending staff. He walked on Singh protocol for 5 minutes and 47 seconds and achieved 86% of target heart rate with mildly hypertensive blood pressure response. Resting blood pressure 142/80. Peak blood pressure 178/100. The patient achieved +10% of functional aerobic impairment and 7 METs of workload. He felt fatigued. No angina. Baseline rhythm was sinus with right bundle branch block and left anterior fascicular block. During stress, there were no convincing ischemic changes. There were no new significant arrhythmias. RAW DATA: There was increased subdiaphragmatic activity. The patient's weight is 205 pounds. GATED STUDY: Resting LV ejection fraction 67% and stress LV ejection fracture 72% without any obvious wall motion abnormalities. Resting end-diastolic volume 150 mL. No transient ischemic dilatation. TID ratio 0.74, which is within normal limits. Lung/heart ratio 0.30, which is within normal limits. MYOCARDIAL PERFUSION: Stress supine and resting supine images revealed a small- dc-tcryqawr-qoyvr sltdbhuc-mw-ffrkcqzt-decreased perfusion of the inferior wall and inferior apex, which got significantly improved during prone images. However, prone images remained to have moderately-decreased perfusion of the inferior apex. There was no reversible ischemia. CONCLUSION: 1. No obvious reversible ischemia. 2. Stress supine and resting supine images revealed a moderate-sized moderately- severe inferior wall and inferior apical defect, which got significantly improved during prone images. Most likely, we are dealing with diaphragmatic tissue attenuation artifact with some persistent tissue attenuation artifact, as well. Inferior wall and inferior apex are moving well, which goes against the diagnosis of previous transmural myocardial infarction. Hence, I will call this study most likely a normal myocardial perfusion study. LV function is preserved. The patient has underlying right bundle branch block and left anterior fascicular block. Diminished exercise tolerance. Mildly hypertensive blood pressure response. Overall, this is a low-risk myocardial perfusion scan. Devon Montes De Oca - TOOL DESIGN DRAFTSPERSON/sofy/ts doc#: [id number]/job#: [id number] dd: 10/29/2018 17:31:00 dt: 10/30/2018 07:26:00 DICTATING MD/COPIES TO: Rosita Hernandez MD COPIES MNE: DALE
== END ==
PROVIDERS: PCP Family Medicine; Visit Provider Family Medicine
DX: R06.09 Other forms of dyspnea (principal); I49.3 Ventricular premature depolarization; I45.19 Other right bundle-branch block; I25.10 Atherosclerotic heart disease of native coronary artery without angina pectoris; I10 Essential (primary) hypertension
CPT/HCPCS: 78452; 93016; 93017; 93018; A9502

== ENCOUNTER → 2019-09-29 09:15 | Outpatient (CLI) | payer MEDICARE, OTHER, SELFPAY ==
--- NOTE | 2019-09-29 | DI.CT.S_ITS ---
PROCEDURE: CT CHEST W CON INDICATIONS: Interstitial pulmonary disease, unspecified TECHNIQUE: After the administration of intravenous contrast, 5 mm thick sections acquired from the pulmonary apices to the posterior costophrenic angles. 1 mm axial lung, 5 mm thick coronal and sagittal reformats and 7 mm axial MIP were acquired. For radiation dose reduction, the following was used: automated exposure control, adjustment of mA and/or kV according to patient size. COMPARISON: [facility], CT, CT CHEST ABD PEL W CON, 09/21/2018, 10:49. FINDINGS: Image quality: Excellent. Lungs and pleura: No acute air space opacities. There has been no change in the pattern of gjjx-nh-nobinugi pulmonary interstitial prominence, initially seen by CT scanning 09/21/18. No new superimposed alveolitis or consolidative pneumonia is found. No pleural effusions or pneumothorax. Central and peripheral airways are patent and normal in caliber. Mediastinum: Heart size is normal. No pericardial effusion. No mediastinal or hilar adenopathy by size criteria. Thoracic aorta and central pulmonary arteries are normal in size. Esophagus is normal in caliber. No hiatal hernia. Bones and chest wall: No suspicious bony lesions. No vertebral body compression fractures. No axillary or supraclavicular adenopathy by size criteria. Thyroid gland is normal where well seen. Abdomen: Visualized upper abdominal solid organs appear normal. Upper abdominal bowel loops are normal in caliber. IMPRESSION: Runz-lh-qaaahskw chronic interstitial prominence, mild lung base fibrotic change, no worsening appearance from the comparison study in August of last year. No underlying active pneumonia or development of pulmonary neoplasm is suspected. Dictated by: Julián Bingham M.D. on 09/29/2019 at 11:16 Approved by: Julián Bingham M.D. on 09/29/2019 at 11:19
== END ==
PROVIDERS: PCP Family Medicine; Referring Provider Family Medicine; Visit Provider Family Medicine
DX: J84.9 Interstitial pulmonary disease, unspecified (principal)
CPT/HCPCS: 71260; Q9967

== ENCOUNTER → 2020-11-14 10:52 | Outpatient (CLI) | payer MEDICARE, OTHER, SELFPAY ==
--- NOTE | 2020-11-14 10:54 | DI.CT.S_ITS ---
PROCEDURE: CT CHEST ABD PEL W CON INDICATIONS: weight loss, unintentional TECHNIQUE: After the administration of oral and intravenous contrast, axial sections acquired from the supraclavicular neck to the pubic symphysis. Coronal and sagittal reformats were performed. For radiation dose reduction, the following was used: automated exposure control, adjustment of mA and/or kV according to patient size. COMPARISON:[facility], CT, CT CHEST ABD PEL W CON, 09/21/2018, 10:49. FINDINGS: Image quality: Excellent. CHEST: Lower Neck: No enlarged lymph nodes. Axillae: No enlarged lymph nodes. Chest Wall: Unremarkable. Lungs and Airways: Peripheral reticular thickening of the interstitium with ground-glass airspace opacity with varying degrees of honeycombing. Findings are suggestive of interstitial lung disease with an NSIP or UIP pattern. Pleura: No pneumothorax or pleural effusions. Heart: Heart size is normal. No pericardial effusion. Thoracic Vessels: The aorta and pulmonary arteries demonstrate normal size. Mediastinum and Patricia: No enlarged lymph nodes. ABDOMEN: Liver: No liver mass. Gallbladder: Normal without gallstone demonstrated. Biliary ducts: Nondilated. Pancreas: No pancreatic mass or pancreatic ductal dilatation demonstrated. Spleen: Normal size and appearance. Adrenal Glands: No adrenal gland nodule or mass. Kidneys and Ureters: Unremarkable. Stomach and Bowel: No abnormally dilated or thickened loop of bowel. No pericolonic or mesenteric inflammatory changes. Peritoneum: No abnormal intraperitoneal fluid. No free air. Ventral Wall: No hernia. Abdominal Nodes: No retroperitoneal or mesenteric adenopathy by size criteria. Vessels: Aorta and inferior vena cava are normal in size. PELVIS: Pelvic Organs: Unremarkable. Bladder: Unremarkable. Pelvic Nodes: No enlarged lymph nodes. Miscellaneous: No inguinal hernias are seen. Bones: Unremarkable. IMPRESSION: Findings of interstitial lung disease as described above. No mass in the chest, abdomen, or pelvis. Dictated by: Gerson Martínez M.D. on 11/14/2020 at 13:10 Approved by: Gerson Martínez M.D. on 11/14/2020 at 13:16
== END ==
PROVIDERS: PCP Family Medicine; Referring Provider Internal Medicine Hematology & Oncology; Visit Provider Internal Medicine Hematology & Oncology
DX: R63.4 Abnormal weight loss (principal); J84.9 Interstitial pulmonary disease, unspecified
CPT/HCPCS: 71260; 74177

== ENCOUNTER → 2021-01-10 13:39 | Outpatient (CLI) | payer MEDICARE, OTHER, SELFPAY ==
--- NOTE | 2021-01-10 | DI.ECHO.S_ITS ---
[place]---------+ [facility] +---------+ : : [address] : [place] : : : : [phone] : : : : Phone: [phone]+ Echocardiogram Report + + :Name: DEMETRA MOODY Study Date: 01/10/2021 Height: 73 in : :[facility] ReadingLocation: Weight: 178 lb : : Gender: Male BSA: 2.0 m2 : :: 1945 Age: 75 yrs BP: 114/75 mmHg: :Reason For Study: AORTIC STENOSIS : :Ordering Physician: THU, : :MELINA Performed By: Daxa Oakes : :Referring: MELINA ANDINO : + + Interpretation Summary The left ventricle is normal in size. Left ventricular systolic function is normal. The ejection fraction is estimated to be 60-65%. LVEF has not changed. There is a significant dyssynchronous contraction pattern, consistent with a conduction abnormality. Diastolic parameters suggest a relaxation abnormality of the left ventricle, consistent with probable normal filling pressures. The right ventricle is normal in size and function. Pulmonary artery pressures cannot be estimated because of the lack of a measurable TR jet velocity. The left atrial size is normal. Right atrial size is normal. There is mild to moderate aortic stenosis. has not changed. The calculated aortic valve area is 1.6 cm2. The peak aortic velocity is 2.37 m/sec. There is no other significant valvular heart disease. The aortic root is borderline dilated. The ascending aorta is moderately enlarged. The aortic arch is mildly enlarged. Mild atherosclerotic plaque(s) in the aortic arch. Procedure: A two-dimensional transthoracic echocardiogram with color flow and Doppler was performed. The study quality was technically adequate. Comparison is made with the echocardiogram of 10/05/2018. The subcostal views were difficult to obtain and are suboptimal in quality. The heart rate ranged between 77-86 bpm during the study. Left Ventricle: The left ventricle is normal in size. There is borderline concentric left ventricular hypertrophy. Left ventricular systolic function is normal. The ejection fraction is estimated to be 60-65%. There is a significant dyssynchronous contraction pattern, consistent with a conduction abnormality. Diastolic parameters suggest a relaxation abnormality of the left ventricle, consistent with probable normal filling pressures. Right Ventricle: The right ventricle is normal in size and function. Atria: The left atrial size is normal. Right atrial size is normal. There is no Doppler evidence for an interatrial shunt. Mitral Valve: The mitral valve is normal in structure and function. There is trace mitral regurgitation. Aortic Valve: The aortic valve is trileaflet. The aortic valve is moderately calcified. There is mildly reduced leaflet mobility. There is mild to moderate aortic stenosis. The peak aortic velocity is 2.37 m/sec. The aortic valve mean gradient is 12.5 mmHg. The calculated aortic valve area is 1.6 cm2. No aortic regurgitation is present. Tricuspid Valve: The tricuspid valve is normal in structure and function. There is trace tricuspid regurgitation. Pulmonary artery pressures cannot be estimated because of the lack of a measurable TR jet velocity. Pulmonic Valve: The pulmonic valve is not well visualized. There is a trace or physiologic amount of pulmonic regurgitation. There is no other significant valvular heart disease. Great Vessels: The aortic root is borderline dilated. The ascending aorta is moderately enlarged. The aortic arch is mildly enlarged. Mild atherosclerotic plaque(s) in the aortic arch. The inferior vena cava was not visualized. Pericardium/ Pleura There is no pericardial effusion. There is no pleural effusion. MMode/2D Measurements & Calculations LVIDd: 4.6 cm LVOT diam: 2.3 cm LVIDs: 3.1 cm Ao root diam: 3.9 cm FS: 32.9 % asc Aorta Diam: 4.4 cm IVSd: 0.76 cm Ao Arch Diam (Prox Trans): 3.4 cm LVPWd: 1.1 cm LV echols. diameter/BSA (cm/m^2): 2.3 LV sys. diameter/BSA (cm/m^2): 1.5 LA A2 area: 20.9 cm2 RA long axis: 4.9 cm LA A4 area: 18.1 cm2 RA area: 16.6 cm2 LA length (vol): 6.4 cm RA vol: 48.3 ml LA vol: 50.4 ml RA : 23.6 ml/m2 LA vol index: 24.6 ml/m2 RVD1 (basal): 3.7 cm TAPSE: 2.2 cm Doppler Measurements & Calculations Ao V2 max: 237.4 cm/sec LVOT Max Wili: 87.3 cm/sec Ao V2 mean: 155.6 cm/sec LV V1 max P.0 mmHg Ao max P.5 mmHg LV V1 VTI: 14.3 cm Ao mean P.5 mmHg BELKIS(I,D): 1.5 cm2 Ao V2 VTI: 41.2 cm BELKIS(V,D): 1.6 cm2 sev ratio: 0.35 BELKIS indexed to BSA (cm^2/m^2): 0.73 MV E max wili: 50.7 cm/sec PA V2 max: 99.9 cm/sec MV A max wili: 101.2 cm/sec PA V2 mean: 66.6 cm/sec MV E/A: 0.50 PA mean P.1 mmHg Med Peak E' Wili: 9.8 cm/sec PA pr(Accel): 53.3 mmHg E/E' med: 5.2 Lat Peak E' Wili: 8.6 cm/sec E/E' lat: 5.9 E/e' average: 5.5 MV dec time: 0.27 sec SV(LVOT): 61.3 ml Reading Physician:07:13 PM
== END ==
PROVIDERS: PCP Family Medicine; Referring Provider Family Medicine; Visit Provider Family Medicine
DX: I35.0 Nonrheumatic aortic (valve) stenosis (principal); I77.810 Thoracic aortic ectasia; I70.0 Atherosclerosis of aorta
CPT/HCPCS: 93306

== ENCOUNTER → 2021-01-28 08:37 | Outpatient (CLI) | payer MEDICARE, OTHER, SELFPAY ==
[2021-01-28 11:39] LABS: COVID19 -Nasal RAPID Negative (Negative)
== END ==
PROVIDERS: PCP Family Medicine; Visit Provider Nurse Practitioner Family
DX: Z20.822 Contact with and (suspected) exposure to COVID-19 (principal)
CPT/HCPCS: 87635; C9803

== ENCOUNTER → 2021-01-29 07:21 | Outpatient (CLI) | payer MEDICARE, OTHER, SELFPAY ==
--- NOTE | 2021-01-29 17:54 | DI.NM.S_ITS ---
DATE OF SERVICE: PROCEDURE: Pharmacological perfusion study. DATE OF STUDY: January 29, 2021 INDICATIONS: Chest pain, shortness of breath, moderate aortic stenosis. RADIOPHARMACEUTICAL: 24.6 millicurie technetium-99m Myoview IV was injected at stress and 12.7 millicurie technetium-99m Myoview IV was injected at rest. CARDIAC STRESS: The patient underwent IV Lexiscan perfusion study under the supervision of an attending staff as per standard protocol. The patient received IV Lexiscan as per standard protocol. Remained hemodynamically stable. No anginal symptoms. Baseline rhythm was sinus with right bundle branch block. During stress, no new convincing ischemic changes or new arrhythmias seen. RAW DATA: There is a significant gut shadow seen near the inferior border of the heart. During rest, it is encroaching upon the inferior border of the heart. GATED STUDY: During stress LV ejection fraction 71 percent without any obvious wall motion abnormalities. Stress end-diastolic volume 118 mL. Lung/heart ratio 0.23, which is within normal limits. TID ratio 1.0, which is within normal limits. MYOCARDIAL PERFUSION SCAN: Please note that there are no stress prone images. Stress supine and resting supine images were compared to each other. Stress supine images revealed small size, mildly decreased perfusion of inferior apex extending into the distal inferolateral wall. However, resting supine images showed large size, severely decreased perfusion of inferior wall, inferior apex, as well as the entire inferolateral wall. Resting supine images worse than stress supine images. On raw images, there is significant gut shadow engulfing the inferior border of the heart predominantly during rest images. Stress images also showed gut shadow near the inferior border of the heart, but not as bad as it was during rest images. Most likely we are dealing with tissue attenuation artifact. Inferior wall and inferior apex is moving well during the gated study. CONCLUSION: Likely a normal myocardial perfusion study. However one cannot rule out the possibility of a small inferior apical and distal inferolateral infarction. There is significant gut shadow affecting the inferior border of the heart, likely responsible for this perfusion defect. Detail as stated above. The stress supine images showed LV ejection fraction 71 percent without any obvious wall motion abnormalities. Preserved left ventricular function and wall motion goes against the diagnosis of previous transmural myocardial infarction. No prone images were done. Overall low-risk perfusion study. Correlate clinically. Devon Montes De Oca - CYTOGENETICS TECHNOLOGIST/fn/cs doc#: [id number]/job#: [id number] dd: 01/29/2021 17:25:00 dt: 01/29/2021 17:41:00 DICTATING MD/COPIES TO: Rosita Hernandez MD COPIES MNE: DALE;
== END ==
PROVIDERS: PCP Family Medicine; Referring Provider Family Medicine; Visit Provider Family Medicine
DX: R07.9 Chest pain, unspecified (principal); I35.0 Nonrheumatic aortic (valve) stenosis
CPT/HCPCS: 78452; 93017; A9502; J2785

== ENCOUNTER → 2021-11-18 13:46 | Outpatient (CLI) | payer MEDICARE, OTHER, SELFPAY ==
--- NOTE | 2021-12-10 14:02 | P.HOLT.S_ITS ---
Senior Applications Developer Report Referral & Results Date Patient Seen: 11/18/21 Requesting provider: Bryanna Andrew Indication: Syncope Duration of monitoring (days): 14 Diary information: There were 11 patient triggered events and 0 patient diary entries Patient triggered events were associated with sinus rhythm and PACs Data: Minimum heart rate identified was 50 beats per minute at 05:53 on 11/24/2021 Maximum sinus heart rate was 111 beats per minute at 17:24 on 11/19/2021 Maximum overall heart rate was 146 beats per minute at 18:47 on 11/25/2021 during a run of SVT Less than 1% of identified beats were ventricular or supraventricular ectopic in origin, which would classify them as rare. There were 2 runs of ventricular tachycardia the fastest being the 4 beat run at 129 beats per minute the longest lasting 7 beats at a rate of 114 beats per minute There were 18 runs of SVT the fastest being a 12 beat run at the above rate of 146 beats per minute with the longest lasting 15.9 seconds with an average rate of 106 beats per minute which suggest more atrial tachycardia rather than true SVT There were no pauses of 3 seconds or longer or episodes of atrial fibrillation identified on this study Impression: 14 day credit risk review officer demonstrating rare PACs connect with patient events Also very rare very brief runs of nonsustained monomorphic ventricular tachycardia as well as very rare equally very brief runs of SVT Clinical correlation suggested
== END ==
PROVIDERS: Family Provider Family Medicine; PCP Family Medicine; Referring Provider Family Medicine; Visit Provider Family Medicine
DX: R55 Syncope and collapse (principal)
CPT/HCPCS: 93246; 93248